=== PATIENT | female | born 1960 | race African-American/Black ===

== ENCOUNTER 2016-08-06 15:22 | Emergency (ER) | payer OTHER ==
[2016-08-06 15:49] VITALS: BP 195/87; PULSE 83; TEMP 99.1; BMI 30.4
--- NOTE | 2016-08-06 16:29 | PDOC ---
History of Present Illness - General Chief Complaint: RX Refill Stated Complaint: RX REFILL Time Seen by Provider: 08/06/16 15:41 History Source: Patient Exam Limitations: No Limitations - History of Present Illness Initial Comments: 08/06/16 16:33 Chief complaint: out of some blood pressure meds and cholesterol lowering medication History of present illness: Patient is a 56-year-old female with a history of hypertension and [id number] diabetes, hyperlipidemia here today due to running out of her valsartan 40 mg daily and Norvasc 10 mg daily and hydrochlorothiazide 25 mg daily and has a few atorvastatin 40 mg hour of sleep. She denies any visual changes, headache, chest pain, shortness of breath, dizziness, swelling of her legs or decreased urination. Patient reports that she had left a message on her primary care provider's office voicemail last week or no in from the office got in touch with her today. Patient also called doctor's office today and was told that they will be open on Tuesday. Timing/Duration: other (today out of some meds ) Associated Symptoms: reports: denies symptoms Past History - Past Medical History Allergies/Adverse Reactions: Allergies Allergy/AdvReac Type Severity Reaction Status Date / Time corn Allergy Vomiting Verified 08/06/16 15:42 peanut Allergy Rash Verified 08/06/16 15:42 Home Medications: Ambulatory Orders Metformin HCl [Glucophage -] 500 mg PO BID #60 tablet 07/07/16 Amlodipine Besylate [Norvasc -] 10 mg PO DAILY #30 tablet 08/06/16 Aspirin Coated [Ecotrin -] 81 mg PO DAILY #30 tablet.ec 08/06/16 Atorvastatin Ca [Lipitor] 40 mg PO HS #30 tablet 08/06/16 Hydrochlorothiazide [Hctz -] 25 mg PO DAILY #30 tablet 08/06/16 Valsartan [Diovan] 40 mg PO DAILY #30 tablet 08/06/16 Diabetes: Yes HTN: Yes Hypercholesterolemia: Yes - Surgical History Abdominal Surgery: Yes (HERNIA) Appendectomy: Yes GI Surgery: Yes (BLOCKAGE) - Psycho/Social/Smoking Cessation Hx Anxiety: No Suicidal Ideation: No Smoking Status: No Smoking History: Never smoked Have you smoked in the past 12 months: No Number of Cigarettes Smoked Daily: 0 Hx Alcohol Use: No Drug/Substance Use Hx: No Substance Use Type: None Review of Systems - Review of Systems Able to Perform ROS?: Yes Constitutional: No: Symptoms Reported HEENTM: No: Symptoms Reported Respiratory: No: Symptoms reported Cardiac (ROS): No: Symptoms Reported ABD/GI: No: Symptoms Reported : No: Symptoms Reported Musculoskeletal: No: Symptoms Reported Integumentary: No: Symptoms Reported Neurological: No: Symptoms reported *Physical Exam - Vital Signs Last Vital Signs Temp Pulse Resp BP Pulse Ox 99.1 F 83 19 195/87 95 08/06/16 15:43 08/06/16 15:43 08/06/16 15:43 08/06/16 15:43 08/06/16 15:43 - Physical Exam General Appearance: Yes: Appropriately Dressed HEENT: positive: EOMI, H[place] Respiratory/Chest: positive: Lungs Clear, Normal Breath Sounds. negative: Chest Tender, Respiratory Distress Cardiovascular: positive: Regular Rhythm, Regular Rate, S1, S2 Musculoskeletal: negative: CVA Tenderness, CVA Tenderness (R), CVA Tenderness (L ) Integumentary: positive: Normal Color Neurologic: positive: Alert, Normal Response, Responsive. negative: Respond to painful stimul, Numbness, Sensory Deficit Medical Decision Making - Medical Decision Making 08/06/16 16:33 08/06/16 16:36 Patient is a 56-year-old female with a history of hypertension and non-insulin- dependent diabetes, hyperlipidemia here today due to running out of her valsartan 40 mg daily and Norvasc 10 mg daily and hydrochlorothiazide 25 mg daily and has a few atorvastatin 40 mg hour of sleep. She denies any visual changes, headache, chest pain, shortness of breath, dizziness, swelling of her legs or decreased urination. Patient reports that she had left a message on her primary care provider's office voicemail last week or no in from the office got in touch with her today. Patient also called doctor's office today and was told that they will be open on Tuesday. H/O HTN, hyperlipidemia, NIDDM PLAN: Valsartan 40 mg daily renewed Atorvastatin 40 mg at bedtime renewed Norvasc 10 mg daily renewed hydrochlorothiazide 25 mg daily Follow-up with her primary care provider as soon as possible Patient to return to emergency room if the symptoms of visual changes, headache , chest pain, shortness of breath, dizziness, swelling of her legs or decreased urination *DC/Admit/Observation/Transfer Diagnosis at time of Disposition: Encounter for medication refill - Discharge Dispostion Disposition: HOME Condition at time of disposition: Stable - Patient Instructions Additional Instructions: Follow-up with your primary care provider on 08/09/2016 Return to emergency room if any change in vision, headache, dizziness, chest pain, shortness of breath, decreased urination, or any swelling of your legs or any difficulty breathing Patient instructed to decrease sodium intake do not eat canned vegetables, use salt on foods or eat any processed meats patient voiced understanding of discharge instructions and all questions were answered
== END 2016-08-06 16:43 | disposition home or self-care (01) ==
LOC: JERFT 15:22
DX: Z76.0 Encounter for issue of repeat prescription (principal); I10 Essential (primary) hypertension; E78.00 Pure hypercholesterolemia, unspecified; E11.9 Type 2 diabetes mellitus without complications; Z79.84 Long term (current) use of oral hypoglycemic drugs
CPT/HCPCS: 99281-25

== ENCOUNTER 2016-09-11 16:35 | Emergency (ER) | payer OTHER ==
[2016-09-11 16:53] VITALS: BP 180/100; PULSE 81; TEMP 98.4; BMI 30.4
--- NOTE | 2016-09-11 17:13 | PDOC ---
History of Present Illness - General Chief Complaint: RX Refill Stated Complaint: RX REFILL Time Seen by Provider: 09/11/16 16:55 History Source: Patient Exam Limitations: No Limitations - History of Present Illness Initial Comments: CHIEF COMPLAINT: 56 y/o afebrile female with PMH HTN and DM here for refill on all of her medications. HISTORY OF PRESENT ILLNESS: She states she cannot get in to see her PMD. She has no complaints. She denies f/c, MAHAJAN, n/v/d, CP, SOB, abd pain. Vital signs on arrival are notable for BP of 180/100 REVIEW OF SYSTEMS: GENERAL/CONSTITUTIONAL: No fever/chills. No weakness. No weight change. HEAD, EYES, EARS, NOSE AND THROAT: No change in vision. No ear pain or discharge. No sore throat. CARDIOVASCULAR: No chest pain or shortness of breath. RESPIRATORY: No cough, wheezing, or hemoptysis. GASTROINTESTINAL: See history of present illness. GENITOURINARY: No dysuria, frequency, or change in urination. MUSCULOSKELETAL: No joint or muscle swelling or pain. No neck or back pain. NEUROLOGIC: No headache, vertigo, loss of consciousness, or loss of sensation. PHYSICAL EXAM: GENERAL: The patient is awake, alert, and fully oriented, in no acute distress. HEAD: Normal with no signs of trauma. EYES: Pupils equal, round and reactive to light, extraocular movements intact, sclera anicteric, conjunctiva clear. EXTREMITIES: Normal range of motion, no edema. NEUROLOGICAL: Normal speech, normal gait. PSYCH: Normal mood, normal affect. SKIN: Warm, Dry, normal turgor, no rashes or lesions noted. Past History - Past Medical History Allergies/Adverse Reactions: Allergies Allergy/AdvReac Type Severity Reaction Status Date / Time corn Allergy Vomiting Verified 09/11/16 16:46 peanut Allergy Rash Verified 09/11/16 16:46 Home Medications: Ambulatory Orders Metformin HCl [Glucophage -] 500 mg PO BID #60 tablet 07/07/16 Amlodipine Besylate [Norvasc -] 10 mg PO DAILY #30 tablet 08/06/16 Aspirin Coated [Ecotrin -] 81 mg PO DAILY #30 tablet.ec 08/06/16 Atorvastatin Ca [Lipitor] 40 mg PO HS #30 tablet 08/06/16 Hydrochlorothiazide [Hctz -] 25 mg PO DAILY #30 tablet 08/06/16 Valsartan [Diovan] 40 mg PO DAILY #30 tablet 08/06/16 Amlodipine Besylate [Norvasc -] 10 mg PO DAILY #7 tablet 09/11/16 Atorvastatin Ca [Lipitor] 40 mg PO HS #7 tablet 09/11/16 Hydrochlorothiazide [Hctz -] 25 mg PO DAILY #7 tablet 09/11/16 Metformin HCl [Glucophage -] 500 mg PO BID #14 tablet 09/11/16 Valsartan [Diovan] 40 mg PO DAILY #7 tablet 09/11/16 Diabetes: Yes HTN: Yes Hypercholesterolemia: Yes - Surgical History Abdominal Surgery: Yes (HERNIA) Appendectomy: Yes GI Surgery: Yes (BLOCKAGE) - Psycho/Social/Smoking Cessation Hx Anxiety: No Suicidal Ideation: No Smoking Status: No Smoking History: Never smoked Have you smoked in the past 12 months: No Number of Cigarettes Smoked Daily: 0 Information on smoking cessation initiated: No Hx Alcohol Use: No Drug/Substance Use Hx: No Substance Use Type: None *Physical Exam - Vital Signs Last Vital Signs Temp Pulse Resp BP Pulse Ox 98.4 F 81 18 180/100 100 09/11/16 16:47 09/11/16 16:47 09/11/16 16:47 09/11/16 16:47 09/11/16 16:47 Medical Decision Making - Medical Decision Making A/P: 56 y/o afebrile female here for medication refills. She states Dr. Barlow used to be her PCP but no longer and she has not gotten another one. She denies all complaints. Will send refills for 1 week Provided the patient with referral to PCP Instructed her to call PCP on Tuesday to schedule follow up appointment The patient verbalizes understanding of all instructions, has no further questions and is awaiting discharge. *DC/Admit/Observation/Transfer Diagnosis at time of Disposition: Encounter for medication refill - Discharge Dispostion Disposition: HOME Condition at time of disposition: Good - Prescriptions Prescriptions: Valsartan [Diovan] 40 mg PO DAILY #7 tablet Metformin HCl [Glucophage -] 500 mg PO BID #14 tablet Hydrochlorothiazide [Hctz -] 25 mg PO DAILY #7 tablet Atorvastatin Ca [Lipitor] 40 mg PO HS #7 tablet Amlodipine Besylate [Norvasc -] 10 mg PO DAILY #7 tablet - Referrals Referrals: Brian Lizarraga MD [Staff Physician] - (CALL TUESDAY) - Patient Instructions Printed Discharge Instructions: How to Refill a Prescription Additional Instructions: Discharge Instructions: -Please call Dr. Lizarraga on Tuesday to schedule follow up appointment for further prescription drug refills
== END 2016-09-11 17:20 | disposition home or self-care (01) ==
LOC: JERFT 16:35
DX: Z76.0 Encounter for issue of repeat prescription (principal); I10 Essential (primary) hypertension; E11.9 Type 2 diabetes mellitus without complications; Z79.84 Long term (current) use of oral hypoglycemic drugs
CPT/HCPCS: 99281-25